=== PATIENT | female | born 1990 | race Caucasian/White ===

== ENCOUNTER → 2017-03-04 | Outpatient (CLI) | payer OTHER | LOC: GMAM 15:14 | PROVIDERS: ATTEND Family Medicine | DX: R53.82 Chronic fatigue, unspecified (principal) ==

== ENCOUNTER → 2017-08-10 | Outpatient (CLI) | payer OTHER | LOC: GMAJS 11:35 | PROVIDERS: ATTEND Physician Assistant | DX: R51 Headache (principal) ==

== ENCOUNTER → 2017-08-18 | Outpatient (CLI) | payer OTHER | LOC: GMAM 10:04 | PROVIDERS: ATTEND Family Medicine | DX: D47.3 Essential (hemorrhagic) thrombocythemia (principal) ==